=== PATIENT | male | born 1940 | race Caucasian/White ===

== ENCOUNTER 2018-02-13 13:09 | Observation (INO) | payer MEDICARE ==
[~2018-02-13] VITALS: Ht 177.8 cm; Wt 78.7 kg
[2018-02-13] MEDS ORDERED: ROSU10TA PO (13:34)
[2018-02-13] MEDS ORDERED: ASPI-650 PO (13:34)
[2018-02-13] MEDS ORDERED: ASPIRIN 81 MG TABLET CHEW ONE (13:57)
[2018-02-13] MEDS ORDERED: ASPIRIN 81 MG TABLET CHEW PO ONE (14:00)
[2018-02-13 14:27] LABS: BASOPHILS # (AUTO) 0.01 x10^3/uL (0-0.1); BASOPHILS % (AUTO) 0 % (0-1); EOSINOPHILS # (AUTO) 0.12 x10^3/uL (0-0.4); EOSINOPHILS % (AUTO) 2 % (1-7); LYMPHOCYTES # (AUTO) 0.95 x10^3/uL (1-3.4); LYMPHOCYTES % (AUTO) 18 % (22-44); MD NO; MEAN CORPUSCULAR HEMOGLOBIN 31.7 pg (27.5-34.5); MEAN CORPUSCULAR HGB CONC 33.7 g/dL (33.2-36.2); MEAN CORPUSCULAR VOLUME 93.9 fL (81-97); MEAN PLATELET VOLUME 8.8 fL (7.4-10.4); MONOCYTES # (AUTO) 0.56 x10^3/uL (0.2-0.8); MONOCYTES % (AUTO) 11 % (2-9); NEUTROPHILS # (AUTO) 3.52 x10^3/uL (1.8-6.8); NEUTROPHILS % (AUTO) 68 % (42-75); PLATELET COUNT 179 x10^3/uL (130-400); RED BLOOD COUNT 4.69 x10^6/uL (4.38-5.82); RED CELL DISTRIBUTION WIDTH 13.9 % (9.4-14.8)
[2018-02-13 14:38] LABS: ALBUMIN 3.9 g/dL (3.4-5.0); ANION GAP 5 mmol/L (5-15); CALCIUM 8.6 mg/dL (8.5-10.1); CHLORIDE 109 mmol/L (98-107); CREATININE 1.08 mg/dL (0.7-1.3)
[2018-02-13] MEDS ORDERED: BISACODYL 10 MG SUPP PR PRN (15:30)
[2018-02-13] MEDS ORDERED: ONDANSETRON ODT 4 MG PO PRN (15:30)
[2018-02-13] MEDS ORDERED: ENALAPRILAT 1.25 MG/ML, 2ML IV PRN (15:30)
[2018-02-13] MEDS ORDERED: ACETAMINOPHEN 325 MG TABLET PO PRN (15:30)
[2018-02-13] MEDS ORDERED: DOCUSATE 100 MG CAPSULE PO PRN (15:30)
[2018-02-13] MEDS ORDERED: POLYETHYLENE GLYCOL 17 GM PACKET PO PRN (15:30)
[2018-02-13 16:06] VITALS: BP 151/66
[2018-02-13 18:29] VITALS: BP 153/73
[2018-02-13 19:59] VITALS: BP 137/67
[2018-02-13] MEDS ORDERED: ATORVASTATIN 20 MG TABLET PO SCH (21:00)
[2018-02-14 00:29] VITALS: BP 135/68
[2018-02-14 04:33] LABS: BASOPHILS # (AUTO) 0.05 x10^3/uL (0-0.1); BASOPHILS % (AUTO) 1 % (0-1); EOSINOPHILS # (AUTO) 0.18 x10^3/uL (0-0.4); EOSINOPHILS % (AUTO) 3 % (1-7); LYMPHOCYTES # (AUTO) 1.22 x10^3/uL (1-3.4); LYMPHOCYTES % (AUTO) 22 % (22-44); MD NO; MEAN CORPUSCULAR HEMOGLOBIN 31.6 pg (27.5-34.5); MEAN CORPUSCULAR HGB CONC 33.3 g/dL (33.2-36.2); MEAN CORPUSCULAR VOLUME 94.8 fL (81-97); MEAN PLATELET VOLUME 8.9 fL (7.4-10.4); MONOCYTES # (AUTO) 0.54 x10^3/uL (0.2-0.8); MONOCYTES % (AUTO) 10 % (2-9); NEUTROPHILS # (AUTO) 3.48 x10^3/uL (1.8-6.8); NEUTROPHILS % (AUTO) 64 % (42-75); PLATELET COUNT 172 x10^3/uL (130-400); RED BLOOD COUNT 4.55 x10^6/uL (4.38-5.82); RED CELL DISTRIBUTION WIDTH 14.1 % (9.4-14.8)
[2018-02-14 04:45] LABS: ANION GAP 4 mmol/L (5-15); CHLORIDE 109 mmol/L (98-107)
[2018-02-14 04:48] LABS: CHOL/HDL RATIO 3.7; CHOLESTEROL, TOTAL 148 mg/dL (140-239); HDL CHOL % 27 % (26-37); HDL CHOLESTEROL (DIRECT) 40 mg/dL (40-60); LDL CHOLESTEROL,CALCULATED 92 mg/dL (54-169); LDL/HDL RATIO 2.3 (0.5-3.0); TRIGLYCERIDES 79 mg/dL (50-200); VLDL CHOLESTEROL 16 mg/dL (0-25)
[2018-02-14 08:00] VITALS: BP 110/64
[2018-02-14] MEDS ORDERED: GADOBUTROL 10 MMOL/10 ML VIAL ONE (08:54)
[2018-02-14] MEDS ORDERED: ASPIRIN 81 MG TABLET EC PO SCH (09:00)
[2018-02-14 13:00] VITALS: BP 139/64
[2018-02-14] MEDS ORDERED: ASPI-621 PO (16:45)
[2018-02-14] MEDS ORDERED: LISI-167 PO (16:45)
[2018-02-14] MEDS ORDERED: ATOR20TA9 PO (16:45)
== END 2018-02-14 18:44 | disposition home or self-care (01) ==
LOC: ED 13:58 → EDIP 14:45 → INTOOBSV 14:45 → 4EST 15:09
PROVIDERS: ADMIT Hospitalist; ATTEND Hospitalist
DX: G45.9 Transient cerebral ischemic attack, unspecified (principal); I10 Essential (primary) hypertension; G40.909 Epilepsy, unspecified, not intractable, without status epilepticus; G89.29 Other chronic pain; Z79.82 Long term (current) use of aspirin; Z82.49 Family history of ischemic heart disease and other diseases of the circulatory system; Z85.46 Personal history of malignant neoplasm of prostate; Z90.79 Acquired absence of other genital organ(s); Z92.3 Personal history of irradiation
CPT/HCPCS: 36415; 70450; 70553; 80048; 80061; 82040; 85025; 93005; 93306; 93880; 99285; A9585; G0378